=== PATIENT | female | born 1965 | race African-American/Black ===

== ENCOUNTER 2019-02-14 11:58 | Emergency (ER) | payer SELFPAY ==
[~2019-02-14] VITALS: Ht 157.5 cm; Wt 65.0 kg
[2019-02-14] MEDS ORDERED: IBUPROFEN 600MG TABLET PO ONE (14:25)
[2019-02-14] MEDS ORDERED: IBUPROFEN 600MG TABLET ONE (15:05)
[2019-02-14 15:57] VITALS: BP 159/99
== END 2019-02-14 16:00 | disposition home or self-care (01) ==
LOC: ER 12:43
DX: S93.402A Sprain of unspecified ligament of left ankle, initial encounter (principal); I10 Essential (primary) hypertension; J45.909 Unspecified asthma, uncomplicated; X58.XXXA Exposure to other specified factors, initial encounter; Y93.89 Activity, other specified; Y92.89 Other specified places as the place of occurrence of the external cause; Y99.8 Other external cause status
CPT/HCPCS: 73610; 99283

== ENCOUNTER → 2025-01-13 | Outpatient (CLI) | payer BC | END | disposition home or self-care (01) | LOC: MAMMO 07:41 | PROVIDERS: ATTEND Specialist | DX: Z12.31 Encounter for screening mammogram for malignant neoplasm of breast (principal); R92.323 Mammographic fibroglandular density, bilateral breasts; R92.1 Mammographic calcification found on diagnostic imaging of breast | CPT/HCPCS: 77063; 77067 ==